=== PATIENT | male | born 1965 | race Caucasian/White ===

== ENCOUNTER → 2018-12-23 22:59 | Outpatient (CLI) | payer OTHER, SELFPAY ==
[2018-12-23 19:02] VITALS: BMI 32.3
[2018-12-23 23:31] LABS: Absolute Lymphocyte Count 2.08 X10^3/ul (0.83-4.51); Absolute Neutrophil Count 2.4 X10^3/uL (2.0-7.7); Basophil# 0.05 X10^3/uL; Basophil% 0.9 % (0-1); Eosinophil# 0.42 X10^3/uL; Eosinophils% 7.7 % (0-5); Hematocrit 44.5 % (40-54); Hemoglobin 15.4 g/dl (13.0-16.5); Lymphocyte # 2.08 X10^3/ul (4.0); Lymphocyte % 37.9 % (19-41); Mean Corp Hgb Conc 34.6 g/gl (32-36); Mean Corpuscular Hgb 30.8 pg (27.0-32.0); Mean Platelet Vol. 12.3 fl (6.2-12.0); Monocyte# 0.55 X10^3/uL; Neutrophil # 2.36 X10^3/uL (2.7-7.7); Platelet Count 141 K/mm3 (150-450); RBC Distribution Width CV 13.6 % (11.6-14.6); RBC Distribution Width SD 43.6 fl (35.1-43.9); White Blood Count 5.5 K/mm3 (4.4-11.0)
[2018-12-23 23:34] LABS: POSITIVE COUNT NO; POSITIVE DIFFERENTIAL NO; POSITIVE MORPHOLOGY NO
[2018-12-24 00:22] LABS: ALB/GLOB Ratio 1.2 RATIO (0.9-2.4); AST(SGOT) 24 U/L (15-37); Alanine Aminotransfer ALT/SGPT 52 U/L (16-61); Alkaline Phosphatase 69 U/L (45-117); Anion Gap 13 (5-15); BUN 17 mg/dL (7-18); BUN/Creat Ratio 15.6 RATIO (10-20); Calcium,Total 8.7 mg/dL (8.5-10.1); Chloride 105 mmol/L (98-107); Cholesterol 215 mg/dL (200); Creatinine, Serum 1.09 mg/dL (0.70-1.30); EST Glomerular Filtration Rate 76 mL/min (>60); Est Glom Filt Rate - Afr Amer 92 mL/min (>60); Globulin 3.3 g/dL (2.2-4.2); Glucose 109 mg/dL (74-106); High Density Lipoprotein 25 mg/dL; PSA,Total - Annual Screen 0.27 ng/mL (0.00-4.00); Potassium 4.3 mmol/L (3.5-5.1); Protein, Total 7.3 g/dL (6.4-8.2); Sodium Level 141 mmol/L (136-145); Triglycerides 1407 mg/dL
== END ==
PROVIDERS: Referring Provider Nurse Practitioner; Visit Provider Nurse Practitioner
DX: Z00.00 Encounter for general adult medical examination without abnormal findings (principal)
CPT/HCPCS: 80053; 80061; 84153; 85025; G0103

== ENCOUNTER → 2019-04-09 23:41 | Outpatient (CLI) | payer OTHER, SELFPAY ==
[2018-12-23 19:02] VITALS: BMI 32.3
[2019-04-10 00:32] LABS: Cholesterol 224 mg/dL (200); High Density Lipoprotein 29 mg/dL; Thyroid Stim Hormone (TSH) 0.89 uIU/mL (0.358-3.74); Triglycerides 817 mg/dL
== END ==
PROVIDERS: Visit Provider Nurse Practitioner
DX: E78.2 Mixed hyperlipidemia (principal)
CPT/HCPCS: 80061; 84443

== ENCOUNTER → 2019-12-29 20:49 | Outpatient (CLI) | payer OTHER, SELFPAY ==
[2019-12-29 18:49] VITALS: BMI 31.3
[2019-12-29 20:59] LABS: Absolute Lymphocyte Count 2.15 X10^3/uL (0.83-4.51); Basophil# 0.06 X10^3/uL; Basophil% 1.2 % (0-1); Eosinophil# 0.33 X10^3/uL; Eosinophils% 6.5 % (0-5); Hemoglobin 15.6 g/dL (13.0-16.5); Lymphocyte # 2.15 X10^3/ul (4.0); Lymphocyte % 42.6 % (19-41); Mean Corp Hgb Conc 34.7 g/dL (32-36); Mean Corpuscular Hgb 30.7 pg (27.0-32.0); Mean Corpuscular Volume 88.6 fL (80-94); Mean Platelet Vol. 12.3 fl (6.2-12.0); Monocyte# 0.46 X10^3/uL; Monocyte% 9.1 % (0-10); NRBC Flagged by Analyzer 0 % (0-5); Neutrophil # 2.03 X10^3/uL (2.7-7.7); Neutrophil % 40.2 % (47-70); Platelet Count 203 K/mm3 (150-450); RBC Distribution Width CV 13.1 % (11.6-14.6); RBC Distribution Width SD 41.9 fl (35.1-43.9); Red Blood Count 5.08 M/mm3 (4.6-6.2); White Blood Count 5.1 K/mm3 (4.4-11.0)
[2019-12-29 21:54] LABS: ALB/GLOB Ratio 1.2 RATIO (0.9-2.4); AST(SGOT) 17 U/L (15-37); Alanine Aminotransfer ALT/SGPT 38 U/L (16-61); Albumin, Serum 4.2 g/dL (3.2-5.0); Alkaline Phosphatase 63 U/L (45-117); Anion Gap 10 (5-15); BUN 24 mg/dL (7-18); BUN/Creat Ratio 18.8 RATIO (10-20); Calcium,Total 8.6 mg/dL (8.5-10.1); Chloride 100 mmol/L (98-107); Cholesterol 210 mg/dL (200); Creatinine, Serum 1.28 mg/dL (0.70-1.30); EST Glomerular Filtration Rate 63 mL/min (>60); Est Glom Filt Rate - Afr Amer 76 mL/min (>60); Globulin 3.6 g/dL (2.2-4.2); Glucose 278 mg/dL (74-106); High Density Lipoprotein 24 mg/dL; PSA,Total - Annual Screen 0.29 ng/mL (0.00-4.00); Potassium 4.1 mmol/L (3.5-5.1); Protein, Total 7.8 g/dL (6.4-8.2); Sodium Level 136 mmol/L (136-145); Thyroid Stim Hormone (TSH) 1.51 uIU/mL (0.358-3.74); Triglycerides 1511 mg/dL
== END ==
PROVIDERS: Referring Provider Nurse Practitioner; Visit Provider Nurse Practitioner
DX: Z00.00 Encounter for general adult medical examination without abnormal findings (principal)
CPT/HCPCS: 80053; 80061; 84153; 84443; 85025; G0103

== ENCOUNTER 2023-03-29 02:11 | Emergency (ER) | payer OTHER, SELFPAY ==
[2023-03-29 02:12] VITALS: BP 162/85; PULSE 86; RESP 18; TEMP 36.3; O2SAT 98; BMI 31.6
--- NOTE | 2023-03-29 02:18 | EDS_ITS ---
HPI History of Present Illness Chief Complaint: Chest Pain Informant: patient Onset/Context/Timing Onset: Days Activity at onset: gradual Timing: Intermittent and Lasts (Approximately 5 minutes) Quality: Positive for Indigestion and Tightness Location: Substernal Worsened By: Exertion Relieved By: Nothing Associated Symptoms: Positive for Nausea, Dyspnea, Cough and Acid Reflux; Negative for Vomiting, Diaphoresis, Fever, Lightheadedness or Palpitations Narrative Narrative: Patient presents with chest pain that has been intermittent over the last few days. Patient states that when it comes on it lasts approximately for 5 minutes. Patient states it feels like there is some tightness and indigestion. Patient states it is over the substernal area. Patient states it is worse with any exertion. Patient admits to some nausea and indigestion with the pain. Patient also admits to some shortness of breath and cough. Patient also admits to some reflux symptoms. Patient denies any diaphoresis. CVD Risk Factors: Positive for Hypertension, Diabetes, Hypercholesterolemia and Family History 1' </=55 (Unknown, patient was adopted); Negative for Smoking PE Risk Factors: Negative for Recent Travel/Surgery, Recent Immobilization, Prior DVT or PE, Cancer or OCP + Smoking + >/=35 [facility] Medical History (Updated 03/29/23 @ 05:[address] Marcelo Martinez, DO) BPH (benign prostatic hyperplasia) CHRONIC BOILS Diabetes type 2, uncontrolled Hepatitis Hernia High blood triglycerides Hyperlipidemia Hypertension Multiple allergies Home Medications aspirin 81 mg tablet,delayed release (Adult Low Dose Aspirin) 81 mg PO DAILY 12/23/18 [History Last Taken Unknown] loratadine 10 mg capsule 10 mg PO DAILY 12/23/18 [History Last Taken Unknown] omega-3 fatty acids 1,000 mg capsule (Fish Oil Concentrate) 1,000 mg PO BID 12/23/18 [History Last Taken Unknown] gemfibrozil 600 mg tablet 600 mg PO BID #180 tabs 05/12/21 [Rx Last Taken Unknown] sildenafil 100 mg tablet 100 mg PO DAILY PRN sexual activity #10 tabs 05/12/21 [Rx Last Taken Unknown] cyclobenzaprine 5 mg tablet 5 mg PO TID PRN muscle spasm and pain #60 tabs 03/22/22 [Rx Last Taken Unknown] levothyroxine 175 mcg tablet 175 mcg PO DAILY #90 tabs 03/22/22 [Rx Last Taken Unknown] lisinopril 10 mg tablet 10 mg PO DAILY #90 tabs 04/17/22 [Rx Last Taken Unknown] metformin 1,000 mg tablet 1,000 mg PO BID #180 tabs 04/17/22 [Rx Last Taken Unknown] Allergy/AdvReac Type Severity Reaction Status Date / Time Sulfa (Sulfonamide Allergy Severe UNK Verified 03/29/23 02:16 Antibiotics) Family History Other Adopted Surgical History (Updated 03/29/23 @ 02:[address] Marce Mccann MD) History of surgery on lower extremity Social History Smoking Status: Never smoker second hand exposure: No alcohol intake: never substance use type: does not use ROS ROS ED Constitutional Constitutional ED: Denies chills or fever(s) Eyes Eyes: Reports blurry vision; Denies change in vision ENT ENT ED: Denies rhinorrhea or sore throat Cardiovascular Cardiovascular: Reports chest pain; Denies palpitations Respiratory/Chest Respiratory/Chest: Reports cough and dyspnea Gastrointestinal Gastrointestinal: Reports nausea; Denies abdominal pain or vomiting Genitourinary Genitourinary ED: Denies dysuria or hematuria Musculoskeletal Musculoskeletal: Reports back pain and neck pain Integumentary Denies abscess or rash Neurologic Neurologic: Reports headache(s); Denies weakness Allergic/Immunologic Allergic/Immunologic ED: Denies mouth swelling or urticaria EXAM Physical Exam Const Vital Signs: 03/29/23 02:12 03/29/23 02:44 03/29/23 04:30 Temperature 97.3 F L Temperature Source Temporal Pulse Rate 86 63 Respiratory Rate 18 16 Blood Pressure 162/85 H 148/98 H Blood Pressure Mean 110 114 Pulse Ox 98 96 Oxygen Delivery Method Room Air Room Air Room Air 03/29/23 05:13 Temperature Temperature Source Pulse Rate Respiratory Rate 19 H Blood Pressure Blood Pressure Mean Pulse Ox Oxygen Delivery Method Positive well nourished, well developed and obese General Appearance ED: well developed and NAD Nutritional Appearance: obese HEENT normocephalic and atraumatic Eyes PERRL and EOMs intact bilaterally Neck supple and no JVD Chest Wall palpation of chest normal Resp normal respiratory effort and clear to auscultation bilaterally Effort and Inspection: Negative for respiratory distress Cardio regular rate, regular rhythm and no murmurs GI normal to inspection, nondistended, normoactive bowel sounds, soft to palpation, non-tender and non-distended Extremity normal to inspection General Extremety ED: Negative for edema or tenderness General Extremity: Negative for edema Neuro oriented x3, CN's II-XII intact bilaterally and no sensory deficits noted Sensorium / Orientation: awake and alert Motor Exam: strength 5/5 throughout Psych mental status grossly normal Heart Score History: Slightly/Non-Suspicious ECG: Normal Age: >45 - <65 years Risk Factors: >/= 3 Risk Factors or History of CAD Troponin: </= Normal Limit Score: 3 MDM MDM MDM Narrative Medical decision making narrative: Differential diagnosis includes cardiac dysrhythmia, cardiac ischemia, pulmonary embolism, pneumonia, pneumothorax, gastroesophageal reflux disease, hyperthyroidism, hypothyroidism and musculoskeletal pain. EKG will be obtained to assess for cardiac dysrhythmia and cardiac ischemia. Chest x-ray will be obtained to assess for pneumonia and pneumothorax. CBC will be obtained to assess for leukocytosis and anemia. Basic metabolic profile will be obtained to assess for electrolyte abnormality and renal function. High-sensitivity troponin will be obtained to assess for cardiac ischemia. TSH will be obtained to assess for hypothyroidism and hyperthyroidism. D-dimer will be obtained to assess for pulmonary embolism. Lab Data Attestation: I reviewed the patient's lab results. Lab results narrative: CBC was reviewed and was within normal limits. Basic metabolic profile was reviewed and was within normal limits with the exception of a slightly elevated glucose of 151. TSH was reviewed and was normal at 2.95. D-dimer was reviewed and was normal at less than 0.27. High-sensitivity troponin was reviewed and was normal at 5. 2-hour repeat high-sensitivity troponin was reviewed and was normal at 6. Labs: Laboratory Results - last 24 hr 03/29/23 03/29/23 03/29/23 02:15 02:15 02:15 WBC 5.3 RBC 4.79 Hgb 14.4 Hct 42.9 MCV 89.6 MCH 30.1 MCHC 33.6 RDW Std Deviation 42.9 RDW Coeff of Ashley 13.0 Plt Count 174 MPV 11.6 Immature Gran % (Auto) 0.400 Neut % (Auto) 41.6 L Lymph % (Auto) 41.4 H Bartholomew % (Auto) 9.1 Eos % (Auto) 6.4 H Baso % (Auto) 1.1 H Absolute Neuts (auto) 2.2 Absolute Lymphs (auto) 2.19 Nucleated RBC % 0 D-Dimer Quant (PE/DVT) < 0.27 L Sodium 138 Potassium 3.9 Chloride 105 Carbon Dioxide 25.0 Anion Gap 8 BUN 18 Creatinine 1.01 Estim Creat Clear Calc 82.64 Est GFR (MDRD) Af Amer 98 Est GFR (MDRD) Non-Af 81 BUN/Creatinine Ratio 17.8 Glucose 151 H Calcium 8.5 Troponin I High Sens 5 TSH 2.95 03/29/23 04:05 WBC RBC Hgb Hct MCV MCH MCHC RDW Std Deviation RDW Coeff of Ashley Plt Count MPV Immature Gran % (Auto) Neut % (Auto) Lymph % (Auto) Bartholomew % (Auto) Eos % (Auto) Baso % (Auto) Absolute Neuts (auto) Absolute Lymphs (auto) Nucleated RBC % D-Dimer Quant (PE/DVT) Sodium Potassium Chloride Carbon Dioxide Anion Gap BUN Creatinine Estim Creat Clear Calc Est GFR (MDRD) Af Amer Est GFR (MDRD) Non-Af BUN/Creatinine Ratio Glucose Calcium Troponin I High Sens 6 TSH Radiography Diagnostic Testing: Clinical Impression(s) from Imaging Studies Chest X-Ray 03/29/23 02:45 IMPRESSION: Chest with no acute disease. Electronically Signed: Matt Ferrell MD at 2:55 EDT , Portable 1 view chest x-ray was obtained. On my independent interpretation, lung garcia are clear. There is normal cardiac silhouette. Bony thorax is normal. There is no acute process noted. Radiologist also interpreted the x- ray and agrees. EKG Initial EKG: Attestation: I personally reviewed and interpreted this EKG as follows: Interpretation: Sinus Rhythm (68) and No Acute Injury Pattern Comments: EKG was obtained. On my independent interpretation, it showed a normal sinus rhythm with a rate of 68. ID interval, QRS interval, and QTc intervals were all normal. [place] was normal. There are no acute ST or T wave changes. Prior EKG tracings: available for review Prior: Unchanged (10/29/2021) Treatment and Re-Evaluation :: Patient is feeling better on reevaluation. Patient was advised of his findings. Patient has a HEART score of 3. Patient was advised that this is low risk for acute cardiac event. Patient was instructed to follow-up with his primary care physician in 5 to 7 days. Patient was advised that he may need further evaluation of his chest pain as an outpatient. Patient understands and is agreeable with the plan. All questions were answered. Discharge Plan Triage Chief Complaint: Chest Pain ED Provider: Marcelo Martinez Dx/Rx/DC Orders Clinical Impression: Chest pain, Hypertension, Diabetes type 2, uncontrolled Instructions: ED Chest Pain, Uncertain Cause Prescriptions: No Action aspirin [Adult Low Dose Aspirin] 81 mg tablet,delayed release (DR/EC) 81 mg PO DAILY omega-3 fatty acids [Fish Oil Concentrate] 1,000 mg capsule 1,000 mg PO BID loratadine 10 mg capsule 10 mg PO DAILY sildenafil 100 mg tablet 100 mg PO DAILY PRN (Reason: sexual activity) Qty: 10 3RF Rx Instructions: administer 30 minutes to 4 hours before activity gemfibrozil 600 mg tablet 600 mg PO BID Qty: 180 3RF cyclobenzaprine 5 mg tablet 5 mg PO TID PRN (Reason: muscle spasm and pain) Qty: 60 12RF Rx Instructions: may take 2 before sleep levothyroxine 175 mcg tablet 175 mcg PO DAILY Qty: 90 3RF lisinopril 10 mg tablet 10 mg PO DAILY Qty: 90 2RF metformin 1,000 mg tablet 1,000 mg PO BID Qty: 180 2RF Primary Care Provider: Nargis Martin Referrals: Nargis Martin [Primary Care Provider] - 5-7 Days Disposition Disposition: Home, Self Care
--- NOTE | 2023-03-29 02:34 | EKG12_ITS ---
Test Reason : CP Blood Pressure : / mmHG Vent. Rate : 068 BPM Atrial Rate : 068 BPM P-R Int : 144 ms QRS Dur : 092 ms QT Int : 386 ms P-R-T Axes : 025 -11 017 degrees QTc Int : 410 ms Normal sinus rhythm Normal ECG Confirmed by YAJAIRA DAVID, SHAN ([id number]), food editor CARLY WILKERSON ([id number]) on 03/29/2023 8:56:15 AM Referred By: BAN Confirmed By:SHAN GATES MD
--- NOTE | 2023-03-29 02:45 | RAD_ITS ---
INDICATION: chest pain EXAMINATION/TECHNIQUE: X-RAY - XR Chest 1 View COMPARISON: None. Findings: Single frontal view of the chest. LUNG PARENCHYMA: No acute focal airspace disease or mass lesion. PLEURA: No pleural effusion. No pneumothorax. HEART/GREAT VESSELS: Cardiomediastinal silhouette is unremarkable. BONES: Osseous structures are unremarkable for age. RAD/Chest 1 View (Portable) IMPRESSION: Chest with no acute disease. Electronically Signed: Matt Ferrell MD at 2:55 EDT ,
--- NOTE | 2023-03-29 02:51 | ED.RN ---
PT REPORTS NO CP PRESENTLY.
[2023-03-29 02:54] LABS: Absolute Lymphocyte Count 2.19 X10^3/uL (0.83-4.51); Absolute Neutrophil Count 2.2 X10^3/uL (2.0-7.7); Basophil# 0.06 X10^3/uL; Basophil% 1.1 % (0-1); Eosinophil# 0.34 X10^3/uL; Eosinophils% 6.4 % (0-5); Hematocrit 42.9 % (40-54); Hemoglobin 14.4 g/dL (13.0-16.5); Lymphocyte # 2.19 X10^3/ul (0.83-4.51); Lymphocyte % 41.4 % (19-41); Mean Corp Hgb Conc 33.6 g/dL (32-36); Mean Corpuscular Hgb 30.1 pg (27.0-32.0); Mean Corpuscular Volume 89.6 fL (80-94); Mean Platelet Vol. 11.6 fl (6.2-12.0); Monocyte# 0.48 X10^3/uL; Monocyte% 9.1 % (0-10); NRBC Flagged by Analyzer 0 % (0-5); Neutrophil % 41.6 % (47-70); Platelet Count 174 K/mm3 (150-450); RBC Distribution Width SD 42.9 fl (35.1-43.9); Red Blood Count 4.79 M/mm3 (4.6-6.2); White Blood Count 5.3 K/mm3 (4.4-11.0)
[2023-03-29 03:06] LABS: D-Dimer Quantitative (DVT/PE) < 0.27 FEU/ug/m (0.27-0.49)
[2023-03-29 03:17] LABS: Anion Gap 8 (5-15); BUN 18 mg/dL (7-18); BUN/Creat Ratio 17.8 RATIO (10-20); Calcium,Total 8.5 mg/dL (8.5-10.1); Chloride 105 mmol/L (98-107); Creatinine, Serum 1.01 mg/dL (0.70-1.30); EST Glomerular Filtration Rate 81 mL/min (>60); Est Glom Filt Rate - Afr Amer 98 mL/min (>60); Estimated Creatinine Clearance 82.64 ml/min; Glucose 151 mg/dL (74-106); Potassium 3.9 mmol/L (3.5-5.1); Sodium Level 138 mmol/L (136-145); Thyroid Stim Hormone (TSH) 2.95 uIU/mL (0.358-3.74); Troponin-I HS (w/2H Reflex) 5 pg/mL (3.0-78.0)
[2023-03-29 04:30] VITALS: BP 148/98; PULSE 63; RESP 16; O2SAT 96
[2023-03-29 04:51] LABS: Reflex Troponin-HS? (from REC) Y
[2023-03-29 05:11] LABS: Troponin-I HS 6 pg/mL (3.0-78.0)
[2023-03-29 05:13] VITALS: RESP 19
[2023-03-29 05:43] VITALS: BP 136/87; PULSE 64; RESP 18; O2SAT 96
== END 2023-03-29 05:44 | disposition home or self-care (01) ==
PROVIDERS: Emergency Provider Emergency Medicine; Visit Provider Emergency Medicine
DX: R07.9 Chest pain, unspecified (principal); E11.9 Type 2 diabetes mellitus without complications; E78.5 Hyperlipidemia, unspecified; I10 Essential (primary) hypertension; Z79.82 Long term (current) use of aspirin; Z79.899 Other long term (current) drug therapy; Z79.84 Long term (current) use of oral hypoglycemic drugs
CPT/HCPCS: 71045; 80048; 84443; 84484; 85025; 85379; 93005; 99283; A4216